=== PATIENT | female | born 1945 | race Caucasian/White ===

== ENCOUNTER 2017-12-29 10:24 | Emergency (ER) | payer OTHER ==
--- OUTSIDE RECORDS SUMMARY | 2017-12-29 10:57 | XMS REPORT ---
:1945 Author Organization eClinicalWorks Care Team Providers Name Role Phone Briana Jeffries Provider Role Unavailable Allergies, Adverse Reactions, Alerts Substance Reaction Event Type Sulfa Info Not Available Drug Allergy gluten Info Not Available Non Drug Allergy Problems Problem Type Condition Code Onset Dates Condition Status Problem Thyroid disease E07.9 Active Assessment Well woman exam with routine Z01.419 Active gynecological exam Problem Hormone replacement therapy (HRT) Z79.890 Active Assessment Hormone replacement therapy (HRT) Z79.890 Active Assessment Encounter for screening mammogram Z12.31 Active for malignant neoplasm of breast Assessment Thyroid disease E07.9 Active Medications Medication Code System Code Instructions Start Date End Date Status Dosage Estradiol [facility] [id number] 1 MG Orally Daily Active 1 tablet for Three Weeks, 1 Week off Results No Known Results Summary Purpose eClinicalWorks Submission
--- OUTSIDE RECORDS SUMMARY | 2017-12-29 10:57 | XMS REPORT | Clinical Summary ---
:1945 Author Organization [facility] Address [address] [place] [address] Care Team Providers Name Role Phone Gwendolyn Hicks MD Primary Care Provider Allergies Active Allergy Reactions Severity Noted Date Comments Sulfa (Sulfonamide Antibiotics) 06/30/2016 Rash on neck Medications Medication Sig Dispensed Refills Start Date End Date Status estradiol (ESTRACE) Take 1 mg by 0 Active 1 MG tablet mouth daily. cholecalciferol, Take 2,000 0 Active vitamin D3, Units by mouth (VITAMIN D3) 2,000 daily. unit capsule capsule ASCORBATE CALCIUM Take 1,000 mg 0 Active (VITAMIN C ORAL) by mouth daily. CALCIUM CIT/VIT Take by mouth 0 Active D3/ISOFLAVON 2 daily. (MENOPAUSE RELIEF ORAL) melatonin 1 mg Take 2 mg by 0 Active tablet mouth nightly. therapeutic Take 1 tablet 0 Active multivitamin by mouth (THERAGRAN) tablet daily. UNABLE TO FIND Med Name: pork 0 Active thyroid over the counter. 3 pills a day VIT B COMPLEX 100 Take by mouth. 0 01/04/2017 Discontinued COMBO NO.2 ORAL vit B comp Take 1 tablet 0 01/04/2017 Discontinued no.6-itvad-U-biotin by mouth (NEPHRO-ALYCE RX) daily. 1-60-300 mg-mg-mcg tablet DESOGESTREL-ETHINYL Take by mouth 0 01/04/2017 Discontinued ESTRADIOL (VELIVET daily. TRIPHASIC REGIMEN, 28, ORAL) MELATONIN/PYRIDOXIN Take by mouth. 0 01/04/2017 Discontinued E (MELATONIN, WITH B6, ORAL) FEXOFENADINE/PSEUDO Take by mouth 0 01/04/2017 Discontinued EPHEDRINE (ALLERGY as needed. RELIEF D ORAL) THYROID, PORK, ORAL Take by mouth. 0 01/04/2017 Discontinued Active Problems Problem Noted Date Hypothyroidism 01/04/2017 History of hypothyroidism 01/04/2017 Hyperlipidemia HTN (hypertension) Encounters Date Type Specialty Care Team Description 01/18/2017 Office Visit Internal Medicine AdrienneJatinder, Essential hypertension (Primary Dx); MD Gwendolyn Hyperlipidemia, unspecified hyperlipidemia type; History of psychosis 01/11/2017 Telephone Internal Medicine Fabiola, MD Gwendolyn 01/04/2017 Office Visit Internal Medicine AdrienneJatinder, Essential hypertension (Primary Dx); MD Gwendolyn Depression, unspecified depression type; Hyperlipidemia, unspecified hyperlipidemia type; History of hypothyroidism; Hyperglycemia 12/29/2016 Hospital Encounter Radiology Varsha Marino Screening breast MD Debora examination after 12/28/2016 Family History Medical History Relation Name Comments Heart attack Father s/p CABG, at 90 Prostate cancer Father Asthma Mother Colon cancer Mother in her 50s, at 76 due to mets Breast cancer Sister Diabetes Sister Lupus Sister Relation Name Status Comments Father Mother Sister Alive Social History Tobacco Use Types Packs/Day Years Used Date Never Smoker Smokeless Tobacco: Never Used Alcohol Use Drinks/Week oz/Week Comments Yes rarely Sex Assigned at Date Recorded Not on file Job Start Date Occupation Industry Not on file Not on file Not on file Travel History Travel Start Travel End No recent travel history available. Last Filed Vital Signs Vital Sign Reading Time Taken Blood Pressure 144/72 01/18/2017 11:37 AM ENERGY ADMINISTRATOR Pulse 65 01/18/2017 11:37 AM ENERGY ADMINISTRATOR Temperature 36.1 C (97 F) 01/18/2017 11:13 AM ENERGY ADMINISTRATOR Respiratory Rate - - Oxygen Saturation 97% 01/18/2017 11:13 AM ENERGY ADMINISTRATOR Inhaled Oxygen Concentration - - Weight 56.2 kg (124 lb) 01/18/2017 11:13 AM ENERGY ADMINISTRATOR Height 157.5 cm (5' 2") 01/18/2017 11:13 AM ENERGY ADMINISTRATOR Body Mass Index 22.68 01/18/2017 11:13 AM ENERGY ADMINISTRATOR Plan of Treatment Health Maintenance Due Date Last Done Comments SHINGRIX VACCINE (1 of 2) 01/10/1996 ZOSTER VACCINE 2006 PNEUMOCOCCAL POLYSACCHARIDE VACCINE 2011 AGE 65 AND OVER PNEUMOCOCCAL-13 2011 INFLUENZA VACCINE 09/15/2017 BREAST CANCER SCREENING 12/29/2018 12/29/2016, 12/26/2015, 11/21/2014, Additional history exists COLON CANCER SCREENING 01/16/2026 01/17/2016 Procedures Procedure Name Priority Date/Time Associated Diagnosis Comments URINALYSIS, AUTOMATED Routine 01/12/2017 9:41 Essential hypertension Results for this WITH MICROSCOPY AM ENERGY ADMINISTRATOR procedure are in the results section. HEMOGLOBIN A1C Routine 01/12/2017 9:41 Hyperglycemia Results for this AM ENERGY ADMINISTRATOR procedure are in the results section. LIPID PANEL Routine 01/12/2017 9:41 Hyperlipidemia, Results for this AM ENERGY ADMINISTRATOR unspecified procedure are in hyperlipidemia type the results section. COMPREHENSIVE Routine 01/12/2017 9:41 Essential hypertension Results for this METABOLIC PANEL AM ENERGY ADMINISTRATOR procedure are in the results section. CBC WITH PLATELET AND Routine 01/12/2017 9:41 Essential hypertension Results for this DIFFERENTIAL AM ENERGY ADMINISTRATOR procedure are in the results section. MAMMO BREAST SCREEN Routine 12/29/2016 11:05 Screening breast Results for this TOMOSYNTHESIS AM ENERGY ADMINISTRATOR examination procedure are in BILATERAL the results section. after 12/28/2016 Results Urinalysis, automated with microscopy (01/12/2017 9:41 AM ENERGY ADMINISTRATOR) Color, UA YELLOW [facility] [place] Appearance CLEAR [facility] [place] Specific gravity, urine 1.001 - 1.035 [facility] [place] pH, urine 5.0 - 8.0 [facility] [place] Glucose, urine NEGATIVE [facility] [place] Bilirubin, UA NEGATIVE [facility] [place] Ketones, UA NEGATIVE [facility] [place] Occult blood, urine NEGATIVE [facility] [place] Protein, UA NEGATIVE [facility] [place] Nitrite, UA NEGATIVE [facility] [place] Leukocyte esterase, UA NEGATIVE [facility] [place] WBC, UA < OR=5 /HPF [facility] [place] RBC, UA < OR=2 /HPF [facility] [place] Squamous epithelial cells, UA < OR=5 /HPF [facility] [place] Bacteria, UA NONE SEEN /HPF [facility] [place] Hyaline casts, UA NONE SEEN /LPF [facility] [place] Specimen Urine Narrative Performed At FASTING:YES [facility] FASTING: YES Resulting Agency Comment Performing Organization Information: Site ID: [id number] Name: [facility] Address: [address] [place] [phone] Director: Merary Ramirez MD Performing Organization Address City/State/Zipcode Phone Number [employer] [address] [phone] CBC with platelet and differential (01/12/2017 9:41 AM ENERGY ADMINISTRATOR) WBC (L) 3.8 - 10.8 Thousand/uL [facility] [place] RBC 3.80 - 5.10 Million/uL [facility] [place] HGB 11.7 - 15.5 g/dL [facility] [place] HCT 35.0 - 45.0 % [facility] [place] MCV 80.0 - 100.0 fL [facility] [place] MCH 27.0 - 33.0 pg [facility] [place] MCHC 32.0 - 36.0 g/dL [facility] [place] RDW 11.0 - 15.0 % [facility] [place] Platelet count 140 - 400 Thousand/uL [facility] [place] MPV 7.5 - 12.5 fL [facility] [place] Neutrophils, absolute 1,500 - 7,800 cells/uL [facility] [place] Lymphocytes, absolute 850 - 3,900 cells/uL [facility] [place] Monocytes, absolute 200 - 950 cells/uL [facility] [place] Eosinophils, absolute 15 - 500 cells/uL [facility] [place] Basophils, absolute 0 - 200 cells/uL [facility] [place] Neutrophils % [facility] [place] Lymphocytes % [facility] [place] Monocytes % [facility] [place] Eosinophils % [facility] [place] Basophils + RC % [facility] [place] Specimen Blood Narrative Performed At FASTING:YES [facility] FASTING: YES Resulting Agency Comment Performing Organization Information: Site ID: [id number] Name: [facility] Address: [address] [place] [phone] Director: Merary Ramirez MD Performing Organization Address City/State/Zipcode Phone Number [employer] [facility] [place] [phone] Hemoglobin A1c (01/12/2017 9:41 AM ENERGY ADMINISTRATOR) Hemoglobin A1C <5.7 % of total Hgb [facility] [place] Comment: For the purpose of screening for the presence of diabetes: <5.7% Consistent with the absence of diabetes 5.7-6.4%Consistent with increased risk for diabetes (prediabetes) > or=6.5%Consistent with diabetes This assay result is consistent with a decreased risk of diabetes. Currently, no consensus exists regarding use of hemoglobin A1c for diagnosis of diabetes in children. According to [place] Diabetes Association (ADA) guidelines, hemoglobin A1c <7.0% represents optimal control in non- diabetic patients. Different metrics may apply to specific patient populations. Standards of Medical Care in Diabetes(ADA). Specimen Blood Narrative Performed At FASTING:YES [facility] FASTING: YES Resulting Agency Comment Performing Organization Information: Site ID: [id number] Name: [facility] Address: [address] [place] [id number] Director: Merary Ramirez MD Performing Organization Address [facility] Phone Number [employer] [facility] [place] [phone] Lipid panel (01/12/2017 9:41 AM ENERGY ADMINISTRATOR) Cholesterol, total (H) <200 mg/dL [facility] [place] HDL cholesterol >50 mg/dL [facility] Comment: [place] Verified by repeat analysis. Triglycerides <150 mg/dL [facility] [place] LDL cholesterol (H) mg/dL (calc) [facility] calculated Comment: [place] Reference range: <100 Desirable range <100 mg/dL for patients with CHD or diabetes and <70 mg/dL for diabetic patients with known heart disease. LDL-C is now calculated using the Jeannie calculation, which is a validated novel method providing better accuracy than the Friedewald equation in the estimation of LDL-C. Lb SHERMAN et al. DIONNA. 2013;310(19): 1884-5578 (http://education.Carma/faq/WLI327) Cholesterol/HDL ratio <5.0 (calc) [facility] Non-HDL cholesterol <130 mg/dL [facility] Comment: (calc) [place] For patients with diabetes plus 1 major ASCVD risk factor, treating to a non-HDL-C goal of <100 mg/dL (LDL-C of <70 mg/dL) is considered a therapeutic option. Specimen Blood Narrative Performed At FASTING:YES [facility] FASTING: YES Resulting Agency Comment Performing Organization Information: Site ID: [id number] Name: [facility] Address: [address] [place] [phone] Director: Merary Ramirez MD Performing Organization Address [facility]/Zipcode Phone Number [employer] [address] [phone] Comprehensive metabolic panel (01/12/2017 9:41 AM ENERGY ADMINISTRATOR) Glucose 65 - 99 mg/dL [facility] Comment: [place] Fasting reference interval BUN, whole blood 7 - 25 mg/dL [facility] [place] Creatinine 0.60 - 0.93 [facility] Comment: mg/dL [place] For patients >49 years of age, the reference limit for Creatinine is approximately 13% higher for people identified as -[place]. EGFR Non-Afr. [place] > OR=60 [facility] mL/min/1.73m2 [place] EGFR > OR=60 [facility] mL/min/1.73m2 [place] BUN/creatinine ratio 6 - 22 (calc) [facility] [place] Sodium 135 - 146 mmol/L [facility] [place] Potassium 3.5 - 5.3 mmol/L [facility] [place] Chloride 98 - 110 mmol/L [facility] [place] CO2 20 - 31 mmol/L [facility] [place] Calcium 8.6 - 10.4 mg/dL [facility] [place] Protein 6.1 - 8.1 g/dL [facility] [place] Albumin, S 3.6 - 5.1 g/dL [facility] [place] Globulin, total 1.9 - 3.7 g/dL [facility] (calc) [place] Albumin/globulin ratio 1.0 - 2.5 (calc) [facility] [place] Total bilirubin 0.2 - 1.2 mg/dL [facility] [place] Alkaline phosphatase 33 - 130 U/L [facility] AST 10 - 35 U/L [facility] ALT 6 - 29 U/L [facility] [place] Specimen Blood Narrative Performed At FASTING:YES [facility] FASTING: YES Resulting Agency Comment Performing Organization Information: Site ID: [id number] Name: [facility] Address: [address] [place] [phone] Director: Merary Ramirez MD Performing Organization Address City/State/Zipcode Phone Number [facility] [place] [phone] Mammo Breast Screen Tomosynthesis Bilateral (12/29/2016 11:05 AM ENERGY ADMINISTRATOR) Narrative Performed At PROCEDURE: MAMMO BREAST SCREEN TOMOSYNTHESIS BILATERAL [facility] Computer aided detection was utilized for the interpretation of the digital bilateral screening mammography with tomosynthesis. COMPARISON: 12/26/2015-10/19/2007 CLINICAL HISTORY: Screening mammogram.The patient has no current breast complaints. The patient reports a family history of her sister diagnosed breast cancer at age 57. The patient reports a history of prior benign right breast surgical biopsy in 1997. DENSITY: There are scattered areas of fibroglandular density. There is a stable asymmetry in the right outer breast at anterior depth dating back to 2007 mammogram, which is presumed benign. There are vascular calcifications present in both breasts. No significant masses, calcifications, or other findings are seen in either breast. There has been no significant interval change. IMPRESSION:No mammographic evidence of malignancy. RECOMMENDATION: Comparison with physical exam and annual screening mammography. BI-RADS 2: BENIGN This facility is accredited by the [place] [employer] for Mammography. A negative x-ray report should not delay biopsy if a dominant or clinically suspicious mass is present.Not all cancers are identified by x-ray. [id number] Organization Address City/State/Zipcode Phone Number [facility] [address] [place] [address] after 12/28/2016 Insurance Payer Benefit Plan / Group Subscriber ID Type Phone Address [facility] xxxxxxxxxxx Advance Directives Patient has advance care planning documents on file. For more information, please contact:Daniel Stallings[address] [place] [address]
--- NOTE | 2017-12-29 11:35 | EKG ---
Test Date: 2017-12-29 Test Time: 10:41:22 [employer] Specialist: MELISSA MEASUREMENT RESULTS: Intervals: Rate: 67 ME: 184 QRSD: 82 QT: 412 QTc: 435 [place]: P: 80 ME: 184 QRS: 78 T: 87 INTERPRETIVE STATEMENTS: Normal sinus rhythm Normal ECG No previous ECG available for comparison Electronically Signed On 12-29-17 11:34:42 TERMITE CONTROL REPRESENTATIVE by Praveen Blood
[2017-12-29 11:57] LABS: Protime INR 0.97
[2017-12-29 11:58] LABS: Absolute Lymphocytes (CBC) 0.9 K/uL (0.7-4.9); Absolute Monocytes 0.2 K/uL (0.1-1.3); Absolute Neutrophil 2.6 K/uL (1.8-8.0); Basophils % 0.6 % (0-1.3); Eosinophils % 1.8 % (0-4.4); Lymphocytes % 23.8 % (15.3-44.8); MCH 33.6 pg (27.0-35.0); MPV 7.4 fL (7.6-11.3); Monocytes % 6.4 % (3.3-12.3); RBC Red Blood Cell Count 4.19 M/uL (3.86-4.86)
[2017-12-29 12:28] LABS: ALT/SGPT 30 U/L (12-78); AST/SGOT 21 U/L (15-37); Albumin 3.7 g/dL (3.4-5.0); Alkaline Phosphatase 72 U/L (45-117); BUN Blood Urea Nitrogen 28 mg/dL (7-18); Bicarbonate 30 mmol/L (21-32); Bilirubin Direct < 0.1 mg/dL (0-0.2); Bilirubin Total 0.3 mg/dL (0.2-1.0); Glucose Level 100 mg/dL (74-106); Magnesium 2.5 mg/dL (1.8-2.4); NT PRO-BNP 48 pg/mL (<125); Protein, Total 7.2 g/dL (6.4-8.2); Sodium Level 143 mmol/L (136-145); Troponin (Emerg Dept Use Only) < 0.02 ng/mL (0.0-0.045)
[2017-12-29] MEDS ORDERED: NA CHLORIDE 0.9% 1,000 ML ONE (12:59)
--- NOTE | 2017-12-29 13:24 | RAD REPORT ---
EXAM DESCRIPTION: CT - Abdomen Pelvis W Contrast - 12/29/2017 1:10 pm CLINICAL HISTORY: Abdominal pain with hematochezia COMPARISON: none. TECHNIQUE: Computed axial tomography of the abdomen pelvis was obtained. 100 cc Isovue-300 was admin istered intravenously. Oral contrast was not requested which limits evaluation of bowel. All CT scans are performed using dose optimization technique as appropriate and may include automated exposure control or mA/KV adjustment according to patient size. FINDINGS: The liver, spleen, pancreas, adrenal and kidneys appear unremarkable. There is no evidence of diverticulitis. The appendix is normal. A small gallstone is seen. Tiny umbilical hernia IMPRESSION: Cholelithiasis without evidence of cholecystitis.
--- NOTE | 2017-12-29 14:26 | EDPHYS ---
Physician Documentation [facility] Name: Padmaja Chen Age: 72 yrs Sex: Female : 1945 Arrival Date: 12/29/2017 Time: 10:30 Bed 19 Private MD: ED Physician William Messer HPI: 12/29 12:04 This 72 yrs old Female presents to ER via EMS with complaints of Near Syncope.kb 12:04 The patient presents with generalized weakness. Onset: The symptoms/episode kb began/occurred just prior to arrival. Context: occurred at an office, occurred while the patient was walking. Modifying factors: The symptoms are alleviated by nothing, the symptoms are aggravated by nothing. Associated signs and symptoms: Pertinent positives: abdominal pain, diarrhea, blood with bowel movements. Severity of symptoms: At their worst the symptoms were moderate in the emergency department the symptoms are unchanged. Patient's baseline: Neuro: alert and fully oriented, Motor: no deficits, Ambulation: walks without assistance, Speech: normal. The patient has not experienced similar symptoms in the past. The patient has not recently seen a physician. Pt reports she had some blood on the toilet paper after bowel movements for a week. Has had diarrhea for the past 2 days without bleeding. Today was walking to the restroom at the doctor's office and got very weak.. Historical: - Allergies: 10:46 Gluten Protein; ch 10:46 Sulfa (Sulfonamide Antibiotics); ch 10:58 Sulfa (Sulfonamide Antibiotics); jl7 - Home Meds: 10:46 urothyroid [Active]; ch 10:58 Estrol [Active]; progesterone (bulk) 100 % miscellaneous powd [Active]; testosterone jl7 (bulk) miscellaneous [Active]; ultra thyroid [Active]; - PMHx: 10:46 Hypothyroidism; gluten intolerance; vagal syndrome; ch - PSHx: 10:46 bladder sling; rectosecal repair; ch - Immunization history:: Adult Immunizations up to date, Flu vaccine is not up to date. - Social history:: Smoking status: Patient/guardian denies using tobacco, Patient/guardian denies using alcohol, street drugs. - Ebola Screening: : Patient negative for fever greater than or equal to 101.5 degrees Fahrenheit, and additional compatible Ebola Virus Disease symptoms Patient denies exposure to infectious person Patient denies travel to an Ebola-affected area in the 21 days before illness onset No symptoms or risks identified at this time. ROS: 12:03 Constitutional: Negative for fever, chills, and weight loss, Cardiovascular: Negative kb for chest pain, palpitations, and edema, Respiratory: Negative for shortness of breath, cough, wheezing, and pleuritic chest pain, Back: Negative for injury and pain, : Negative for injury, bleeding, discharge, and swelling, MS/Extremity: Negative for injury and deformity, Skin: Negative for injury, rash, and discoloration. 12:03 Abdomen/GI: Positive for abdominal pain, diarrhea, rectal bleeding. 12:03 Neuro: Positive for weakness. Exam: 12:02 Constitutional: This is a well developed, well nourished patient who is awake, alert, kb and in no acute distress. Head/Face: Normocephalic, atraumatic. Chest/axilla: Normal chest wall appearance and motion. Nontender with no deformity. No lesions are appreciated. Cardiovascular: Regular rate and rhythm with a normal S1 and S2. No gallops, murmurs, or rubs. Normal PMI, no JVD. No pulse deficits. Respiratory: Lungs have equal breath sounds bilaterally, clear to auscultation and percussion. No rales, rhonchi or wheezes noted. No increased work of breathing, no retractions or nasal flaring. Skin: Warm, dry with normal turgor. Normal color with no rashes, no lesions, and no evidence of cellulitis. MS/ Extremity: Pulses equal, no cyanosis. Neurovascular intact. Full, normal range of motion. Neuro: Awake and alert, GCS 15, oriented to person, place, time, and situation. Cranial nerves II-XII grossly intact. Motor strength 5/5 in all extremities. Sensory grossly intact. Cerebellar exam normal. Normal gait. 12:02 Abdomen/GI: Inspection: abdomen appears normal, Bowel sounds: normal, in all quadrants, Palpation: soft, in all quadrants, moderate abdominal tenderness, in all quadrants. 12:46 Abdomen/GI: Rectal exam: rectal tone normal, Stool: guaiac negative, hemorrhoid(s), kb external, without bleeding, without inflammation, without thrombosis, without pain, the exam is chaperoned by the nurse. Vital Signs: 10:46 BP 153 / 57; Pulse 63; Resp 13; Temp 97.9; Pulse Ox 99% on R/A; Weight 47.63 kg; Height ch 5 ft. 3 in. (160.02 cm); Pain 6/10; 11:00 BP 140 / 61; Pulse 58; Resp 16 S; Pulse Ox 98% on R/A; jl7 11:51 BP 158 / 62 Supine; Pulse 53; Resp 14 S; Pulse Ox 99% on R/A; jl7 11:53 BP 153 / 70 Sitting; Pulse 70; jl7 11:55 BP 153 / 63 Standing; Pulse 69; jl7 12:09 BP 152 / 64; Pulse 62; Resp 16 S; Pulse Ox 100% on R/A; jl7 10:46 Body Mass Index 18.60 (47.63 kg, 160.02 cm) ch MDM: 10:44 Patient medically screened. kb 12:02 Data reviewed: vital signs, nurses notes. Data interpreted: Pulse oximetry: on room air kb is 99 %. Interpretation: normal. 13:34 Counseling: I had a detailed discussion with the patient and/or guardian regarding: the kb historical points, exam findings, and any diagnostic results supporting the discharge/admit diagnosis, lab results, radiology results, the need for outpatient follow up, a family practitioner, to return to the emergency department if symptoms worsen or persist or if there are any questions or concerns that arise at home. 13:34 ED course: Pt is feeling better and wants to go home. A\\T\\Ox3. at bedside, states kb "She worries too much about her diet. She follows a strict diet and checks her sugar every day. If it's 90 she thinks that is too high so she doesn't eat." Pt states "well tomorrow if it's back to the 70s I can eat that bread I've been saving, but today it was 80 so I couldn't." Pt educated on blood glucose levels, normal values and hypoglycemia. . 12/29 10:56 Order name: Basic Metabolic Panel; Complete Time: 12:32 kb 12/29 10:56 Order name: CBC with Diff; Complete Time: 12:01 kb 12/29 10:56 Order name: LFT's; Complete Time: 12:32 kb 12/29 10:56 Order name: Magnesium; Complete Time: 12:32 kb 12/29 10:56 Order name: NT PRO-BNP; Complete Time: 12:32 kb 12/29 10:56 Order name: PT-INR; Complete Time: 12:08 kb 12/29 10:56 Order name: Troponin (emerg Dept Use Only); Complete Time: 12:32 kb 12/29 12:37 Order name: CT Abd/Pelvis - W/Contrast; Complete Time: 13:26 kb 12/29 12:47 Order name: Guiac kb 12/29 12:47 Order name: Occult Blood--Ancillary EDMS 12/29 13:35 Order name: Urine Dipstick--Ancillary (enter results) bd 12/29 10:56 Order name: EKG; Complete Time: 10:57 kb 12/29 10:56 Order name: Cardiac monitoring; Complete Time: 11:49 kb 12/29 10:56 Order name: EKG - Nurse/Tech; Complete Time: 11:49 kb 12/29 10:56 Order name: IV Saline Lock; Complete Time: 11:49 kb 12/29 10:56 Order name: Labs collected and sent; Complete Time: 11:49 kb 12/29 10:56 Order name: O2 Per Protocol; Complete Time: 11:49 kb 12/29 10:56 Order name: O2 Sat Monitoring; Complete Time: 11:48 kb 12/29 10:56 Order name: Orthostatics; Complete Time: 12:06 kb Administered Medications: 13:15 Drug: NS 0.9% 1000 ml Route: IV; Rate: 1000 ml; Site: right forearm; jl7 14:00 Follow up: IV Status: Completed infusion jl7 Disposition: 18:58 Co-signature as Attending Physician, William Messer MD I agree with the assessment and kdr plan of care. Disposition: 12/29/17 13:56 Discharged to Home. Impression: Weakness, Diarrhea, unspecified. - Condition is Stable. - Discharge Instructions: Food Choices to Help Relieve Diarrhea, Adult, Diarrhea, Adult, Gibs-bw-Jpey, Weakness, Buri-fs-Lina. - Medication Reconciliation Form, Thank You Letter, Antibiotic Education, Prescription Opioid Use form. - Follow up: Emergency Department; When: As needed; Reason: Worsening of condition. Follow up: Private Physician; When: 2 - 3 days; Reason: Recheck today's complaints, Continuance of care, Re-evaluation by your physician. Signatures: Dispatcher [employer] EDMS Tiesha Isidro, TRELL-C WELT CUTTER-Sindy Ashford, RN RN William Messer MD MD [facility] Mikal Clemente RN RN jl7 Corrections: (The following items were deleted from the chart) 14:12 13:56 12/29/2017 13:56 Discharged to Home. Impression: Weakness; Diarrhea, unspecified. jl7 Condition is Stable. Discharge Instructions: Food Choices to Help Relieve Diarrhea, Adult, Diarrhea, Adult, [id number], Weakness, Cyrr-yi-Erhn. Forms are Medication Reconciliation Form, Thank You Letter, Antibiotic Education, Prescription Opioid Use. Follow up: Emergency Department; When: As needed; Reason: Worsening of condition. Follow up: Private Physician; When: 2 - 3 days; Reason: Recheck today's complaints, Continuance of care, Re-evaluation by your physician. kb
--- NOTE | 2017-12-29 14:26 | ER ---
Nurse's Notes [facility] Name: Padmaja Chen Age: 72 yrs Sex: Female : 1945 Arrival Date: 12/29/2017 Time: 10:30 Bed 19 Private MD: Diagnosis: Weakness;Diarrhea, unspecified Presentation: 12/29 10:36 Presenting complaint: Patient states: I have been pooping blood, I get stomach issues, ch for the past week or so. Today I felt like I was going to pass out. 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 I cant eat gluten, it all goes right thru me. Transition of care: patient was not received from another setting of care. Onset of symptoms was December 29, 2017 at 08:00. Risk Assessment: Do you want to hurt yourself or someone else? Patient reports no desire to harm self or others. Initial Sepsis Screen: Does the patient meet any 2 criteria? No. Patient's initial sepsis screen is negative. Does the patient have a suspected source of infection? No. Patient's initial sepsis screen is negative. Care prior to arrival: None. 10:36 Method Of Arrival: EMS: [facility] 10:36 Acuity: KATRIN 3 ch Triage Assessment: 10:46 General: Appears in no apparent distress. uncomfortable, Behavior is calm, cooperative, ch appropriate for age. Pain: Complains of pain in low back area, right lower quadrant and left lower quadrant. Historical: - Allergies: 10:46 Gluten Protein; ch 10:46 Sulfa (Sulfonamide Antibiotics); ch 10:58 Sulfa (Sulfonamide Antibiotics); jl7 - Home Meds: 10:46 urothyroid [Active]; ch 10:58 Estrol [Active]; progesterone (bulk) 100 % miscellaneous powd [Active]; testosterone jl7 (bulk) miscellaneous [Active]; ultra thyroid [Active]; - PMHx: 10:46 Hypothyroidism; gluten intolerance; vagal syndrome; ch - PSHx: 10:46 bladder sling; rectosecal repair; ch - Immunization history:: Adult Immunizations up to date, Flu vaccine is not up to date. - Social history:: Smoking status: Patient/guardian denies using tobacco, Patient/guardian denies using alcohol, street drugs. - Ebola Screening: : Patient negative for fever greater than or equal to 101.5 degrees Fahrenheit, and additional compatible Ebola Virus Disease symptoms Patient denies exposure to infectious person Patient denies travel to an Ebola-affected area in the 21 days before illness onset No symptoms or risks identified at this time. Screenin:09 Abuse screen: Denies threats or abuse. Denies injuries from another. Nutritional jl7 screening: No deficits noted. Tuberculosis screening: No symptoms or risk factors identified. Fall Risk IV access (20 points). Total Elliott Fall Scale indicates No Risk (0-24 pts). Assessment: 11:00 General: See triage assessment. jl7 12:07 Reassessment: Patient appears in no apparent distress at this time. No changes from 7 previously documented assessment. Patient and/or family updated on plan of care and expected duration. Pain level reassessed. Patient is alert, oriented x 3, equal unlabored respirations, skin warm/dry/pink. 13:36 Reassessment: Patient appears in no apparent distress at this time. No changes from 7 previously documented assessment. Patient and/or family updated on plan of care and expected duration. Pain level reassessed. Patient is alert, oriented x 3, equal unlabored respirations, skin warm/dry/pink. Vital Signs: 10:46 BP 153 / 57; Pulse 63; Resp 13; Temp 97.9; Pulse Ox 99% on R/A; Weight 47.63 kg; Height 5 ft. 3 in. (160.02 cm); Pain 6/10; 11:00 BP 140 / 61; Pulse 58; Resp 16 S; Pulse Ox 98% on R/A; jl7 11:51 BP 158 / 62 Supine; Pulse 53; Resp 14 S; Pulse Ox 99% on R/A; jl7 11:53 BP 153 / 70 Sitting; Pulse 70; jl7 11:55 BP 153 / 63 Standing; Pulse 69; jl7 12:09 BP 152 / 64; Pulse 62; Resp 16 S; Pulse Ox 100% on R/A; jl7 10:46 Body Mass Index 18.60 (47.63 kg, 160.02 cm) ED Course: 10:30 Patient arrived in ED. 10:33 Mikal Clemente RN is Primary Nurse. 7 10:38 Triage completed. 10:44 Tiesha Isidro FNP-C is PHCP. kb 10:44 William Messer MD is Attending Physician. kb 10:46 Arm band placed on left wrist. Patient placed in an exam room, on a stretcher, on teletypesetter monitor, on pulse oximetry. 10:51 EKG done, by gis mapping technician. reviewed by Tiesha BUSBY. at1 11:00 Maintain EMS IV. Dressing intact. Good blood return noted. Site clean \T\ dry. Gauge \T\ jl 7 site: 18 right FA. 12:09 Patient has correct armband on for positive identification. Placed in gown. Bed in low jl7 position. Call light in reach. Side rails up X 1. teletypesetter monitor on. Pulse ox on. NIBP on. Warm blanket given. 13:11 CT Abd/Pelvis - W/Contrast In Process Unspecified. EDMS 14:11 No provider procedures requiring assistance completed. IV discontinued, intact, jl7 bleeding controlled, No redness/swelling at site. Pressure dressing applied. Administered Medications: 13:15 Drug: NS 0.9% 1000 ml Route: IV; Rate: 1000 ml; Site: right forearm; jl7 14:00 Follow up: IV Status: Completed infusion jl7 Outcome: 13:56 Discharge ordered by MD. kb 14:11 Discharged to home ambulatory, with family. jl7 14:11 Condition: stable 14:11 Discharge instructions given to patient, family, Instructed on discharge instructions, follow up and referral plans. Demonstrated understanding of instructions, follow-up care. 14:12 Patient left the ED. jl7 Signatures: Dispatcher [employer] EDMS Tiesha Isidro FNP-C FNP-Ckb Hammond, Christina, RN RN Mariela Hatch, ophthalmology assistant EKG Tat1 Mikal Clemente RN RN jl7
[2017-12-29 16:09] LABS: Urine Blood NEGATIVE (NEG); Urine Glucose NEGATIVE (NEG); Urine Protein NEGATIVE (NEG)
== END 2017-12-29 14:12 | disposition home or self-care (01) ==
LOC: ER 10:24
DX: R19.7 Diarrhea, unspecified (principal); E03.9 Hypothyroidism, unspecified; Z88.2 Allergy status to sulfonamides; Z91.048 Other nonmedicinal substance allergy status
CPT/HCPCS: 36415; 74177; 80048; 80076; 81003; 82272; 83735; 83880; 84484; 85025; 85610; 93005; 96360; 99284; J7030; Q9967

== ENCOUNTER 2021-10-23 13:10 | Emergency (ER) | payer OTHER ==
--- OUTSIDE RECORDS SUMMARY | 2021-10-23 13:15 | XMS REPORT | Continuity of Care Document ---
:1945 Author Organization [facility] t Address [address] [place] [address] Care Team Providers Name Role Phone Andrzej VU, Ras A Primary Care Physician [phone] Anam VU, Surjit Attending Clinician Brigida Calix Attending Clinician Dwaine VU, Naima Attending Clinician BRYCE, SHUKRI Attending Clinician Unavailable Payers Payer Name Policy Type Policy Number Effective Date Expiration Date S ource Problems Condition Condition Condition Status Onset Resolution Last Treating Co mments Source Name Details Category Date Date Treatment Clinician Date Prolapse Prolapse Disease Active Unive rs of of 1-14 ity of anterior anterior 00:00: [place] vaginal vaginal 00 Medical wall wall Branch Fatigue Fatigue Disease Active 2017-02 Univers 2-30 ity of 00:00: [address] Hypothyroi Hypothyroi Disease Active 2016- M ethodi dism dism -20 st 00:00: Hospita 00 l History of History of Disease Active 2016- M ethodi hypothyroi hypothyroi 03-06 st dism dism 00:00: Hospita 00 l Acquired Acquired Disease Active 2016-02 Unive rs hypothyroi hypothyroi -20 it y of dism dism 00:00: [address] Hyperlipid Hyperlipid Disease Active M ethodi em[facility] Hospita l HTN HTN Disease Active Methodi (hypertens (hypertens st ion) ion) Hospita l Thyroid Thyroid Diagnosis Active Commo n disease disease Spirit - [facility] Well woman Well woman Diagnosis Active Common exam with exam with Spir it routine routine - [facility] gynecologi gynecologi St brayden exam brayden exam [facility] Hormone Hormone Diagnosis Active Commo n replacemen replacemen Sp kiara t therapy t therapy - [facility] I (HRT) (HRT) [facility] Encounter Encounter Diagnosis Active C ommon for [facility] screening screening - [facility] I mammogram mammogram [facility] malignant malignant [facility] neoplasm neoplasm Center of breast of breast Allergies, Adverse Reactions, Alerts Allergy Allergy Status Severity Reaction(s) Onset Inactive Treating Comm ents Source Name Type Date Date Clinician Latex Propensi Active Rash 2017-02 Univers ty to 2-20 ity of adverse 00:00: [place] reaction 00 Medical s Branch Sulfa Propensi Active Rash on Methodi (Sulfona ty to 5-[address] mide adverse 00:00: Hospita Antibiot reaction 00 l ics) s to drug Sulfa Propensi Active Unknown - Unive rs (Sulfona ty to See comments 4-29 it y of mide adverse 00:00: [place] Antibiot reaction 00 Medica l ics) s Branch gluten Adverse Active Info Not Common Reaction Available [facility] Sulfa Adverse Active Info Not Common Reaction Available [facility] Family History Family Member Diagnosis Comments Start Date Stop Date Source Natural sister Breast cancer [facility] Natural sister Diabetes [facility] Natural sister Lupus [facility] Natural father Heart [facility] Natural father Prostate cancer [facility] Natural mother Asthma [facility] Natural mother Colon cancer [facility] Social History Social Habit Start Date Stop Date Quantity Comments Source Exposure to Not sure University of SARS-CoV-2 [facility] (event) Branch Tobacco use and 2018-01-24 2018-01-24 Never used Universit y of exposure 00:00:00 00:00:00 [facility] Alcohol intake 2017-01-18 2017-01-18 Current drinker [facility] 00:00:00 00:00:00 of alcohol (finding) Alcohol Comment 2017-01-04 2017-01-04 rarely [facility] 00:00:00 00:00:00 Sex [birth year] [facility] 00:00:00 00:00:00 Smoking Status Start Date Stop Date Source Never smoker [facility] Medical Branch Medications Ordered Filled Start Stop Current Ordering Indication Dosage Frequency Signature Comments Components Source Medication Medication Date Date Medication? Clinician (SIG) Name Name phenazopyri Yes [id number] 100mg Take 1 Univers dine 2-21 tablet by ity of (PYRIDIUM) [place]:00[place] 00 (two) Medical tablet times Branch daily as needed for Other (bladder spasms) for up to 30 doses. phenazopyri Yes [id number] 100mg Take 1 Univers dine 2-21 tablet by ity of (PYRIDIUM) 00:00: [place] 100 mg 00 (two) Medical tablet times Branch daily as needed for Other (bladder spasms) for up to 30 doses. phenazopyri Yes [id number] 100mg Take 1 Univers dine 2-21 tablet by ity of (PYRIDIUM) 00:00: [place] 100 mg 00 (two) Medical tablet times Branch daily as needed for Other (bladder spasms) for up to 30 doses. estradioL Yes [id number] Apply 1g Univers (ESTRACE) 1-24 vaginally ity o f 0.01 % (0.1 00:00: at bedtime [place] mg/gram) 00 every Medical vaginal night for Branch cream 2 weeks and then apply 1g vaginally at bedtime 3 times per week (/ ida) estradioL Yes [id number] Apply 1g Univers (ESTRACE) 1-24 vaginally ity o f 0.01 % (0.1 00:00: at bedtime [place] mg/gram) 00 every Medical vaginal night for Branch cream 2 weeks and then apply 1g vaginally at bedtime 3 times per week ( dn/ ida) estradioL Yes [id number] Apply 1g Univers (ESTRACE) 1-24 vaginally ity o f 0.01 % (0.1 00:00: at bedtime [place] mg/gram) 00 every Medical vaginal night for Branch cream 2 weeks and then apply 1g vaginally at bedtime 3 times per week (Wednesday//) estradioL 1 Yes 1mg Take 1 mg U nivers mg tablet -12 by mouth. ity o f 10:17: [place] [facility] Branch elderberry Yes Take by Univ ers fruit 1-12 mouth. ity of (ELDERBERRY 10:17: [place] ORAL) 05 Medical Branch COLLAGEN Yes Univers MISC 1-12 ity of 10:17: [place] [facility] Branch L-TRYPTOPHA Yes Univer s N MISC 12 ity of 10:17: [facility] estradioL 1 Yes 1mg Take 1 mg U nivers mg tablet -12 by mouth. ity o f 10:17: [facility] elderberry Yes Take by Univ ers fruit 1-12 mouth. ity of (ELDERBERRY 10:17: [place] ORAL) [facility] COLLAGEN Yes Univers MISC -12 ity of 10:17: [place] [facility] Branch L-TRYPTOPHA Yes Univer s N MISC 12 ity of 10:17: [facility] estradioL 1 Yes 1mg Take 1 mg U nivers mg tablet -12 by mouth. ity o f 10:17: [place] [facility] elderberry Yes Take by Univ ers fruit 1-12 mouth. ity of (ELDERBERRY 10:17: [place] ORAL) [facility] COLLAGEN Yes Univers MISC 1-12 ity of 10:17: [place] [facility] Branch L-TRYPTOPHA Yes Univer s N MISC -12 ity of 10:17: [facility] testosteron Yes Apply to Un raghav e 1.25 1-12 area(s) ity of g/Actuation 10:12: daily. 0.2 [place] (1 %) gel 29 % (1.25 gm Medi brayden pump dose on Branch back on wrist nightly testosteron Yes Apply to Un raghav e 1.25 1-12 area(s) ity of g/Actuation 10:12: daily. 0.2 [place] (1 %) gel 29 % (1.25 gm Medi brayden pump dose on Branch back on wrist nightly testosteron Yes Apply to Un raghav e 1.25 1-12 area(s) ity of g/Actuation 10:12: daily. 0.2 [place] (1 %) gel 29 % (1.25 gm Medi brayden pump dose on Branch back on wrist nightly plant Yes Take by Univers stanol 1-12 mouth ity of luis enrique 13:34: daily. [place] (CHOLEST 57 Medical OFF ORAL) Branch KELP ORAL Yes 1{tbl} Take 1 Univ ers 1-12 tablet by ity of 13:34: mouth [place] 57 daily. Medical Branch plant Yes Take by Univers stanol 1-12 mouth ity of luis enrique 13:34: daily. [place] (CHOLEST 57 Medical OFF ORAL) Branch KELP ORAL Yes 1{tbl} Take 1 Univ ers 1-12 tablet by ity of 13:34: mouth [place] 57 daily. Medical Branch plant Yes Take by Univers stanol 1-12 mouth ity of luis enrique 13:34: daily. [place] (CHOLEST 57 Medical OFF ORAL) Branch KELP ORAL Yes 1{tbl} Take 1 Univ ers 1-12 tablet by ity of 13:34: mouth [place] 57 daily. [facility] Branch multivitami 2019-0 Yes Take by Uni vers n with 1-14 mouth ity of minerals 13:48: daily. [place] (MULTIPLE 42 Medical VITAMIN-MIN Branch ERALS ORAL) calcium 2020-0 Yes Take by Univers carbonate/v 1-14 mouth. ity of itamin D2 13:48: [place] (CALCIUM 42 Medical 600 + D Branch ORAL) Misc 2020-0 Yes Univers Hormones 1-14 ity of 13:48: [address] Branch multivitami 2020-0 Yes Take by Uni vers n with 1-14 mouth ity of minerals 13:48: daily. [place] (MULTIPLE 42 Medical VITAMIN-MIN Branch ERALS ORAL) calcium 2020-0 Yes Take by Univers carbonate/v 1-14 mouth. ity of itamin D2 13:48: [place] (CALCIUM 42 Medical 600 + D Branch ORAL) Misc 2020-0 Yes Univers Hormones 1-14 ity of 13:48: [place] 42 Medical Branch multivitami 2020-0 Yes Take by Uni vers n with 1-14 mouth ity of minerals 13:48: daily. [place] (MULTIPLE 42 Medical VITAMIN-MIN Branch ERALS ORAL) calcium Yes Take by Univers carbonate/v 1-14 mouth. ity of itamin D2 13:48: [place] (CALCIUM 42 Medical 600 + D Branch ORAL) Misc Yes Univers Hormones 1-14 ity of 13:48: [place] 42 Medical Branch NATURE-THRO 2017-02 Yes Univer s ID 65 mg 0-29 ity of Tab 00:00: [place] 00 Medical Branch NATURE-THRO 2017-02 Yes Univer s ID 65 mg 0-29 ity of Tab 00:00: [place] 00 Medical Branch NATURE-THRO 2017-02 Yes Univer s ID 65 mg 0-29 ity of Tab 00:00: [place] 00 Medical Branch estradiol 2016-02 Yes 1mg QD Take 1 mg Met hodi (ESTRACE) 1 2-[address] MG tablet 11:14: daily. Hospit a 21 l cholecalcif 2016-02 Yes 2000U QD Take 2,000 Methodi naveen, 2-[address] vitamin D3, 11:14: mouth Hospi ta (VITAMIN 21 daily. l D3) 2,000 unit capsule capsule ASCORBATE 2016-02 Yes 1000mg QD Take 1,000 Methodi CALCIUM 2-[address] (VITAMIN C 11:14: mouth Hospit a ORAL) 21 daily. l CALCIUM 2016-02 Yes QD Take by Methodi CIT/VIT 2-[address] D3/ISOFLAVO 11:14: daily. Hosp lucila N 2 21 l (MENOPAUSE RELIEF ORAL) melatonin 1 2016-02 Yes 2mg QD Take 2 mg M ethodi mg tablet 2-[address] 11:14: nightly. Hospita 21 l therapeutic 2016-02 Yes 1{tbl} QD Take 1 Me thodi multivitami 2-[address] n 11:14: mouth Hospita (THERAGRAN) 21 daily. l tablet UNABLE TO 2016-02 Yes Med Name: Met hodi FIND 2-[address] 11:14: thyroid Hospita 21 over the l counter. 3 pills a day Estradiol Estradiol Yes Briana 1 tablet Common [place] [facility] Vital Signs Vital Name Observation Time Observation Value Comments Source Systolic blood 2021-04-07 16:53:00 113 mm[Hg] Univer sity of pressure [facility] Diastolic blood 2021-04-07 16:53:00 63 mm[Hg] Unive rsity [facility] Heart rate 2021-04-07 16:53:00 70 /min [facility] Body temperature 2021-04-07 16:53:00 36.56 [facility] [place] [facility] Respiratory rate 2021-04-07 16:53:00 18 /min [facility] Body height 2021-04-07 16:53:00 157.5 cm [facility] Body weight 2021-04-07 16:53:00 45.36 kg [facility] BMI 2021-04-07 16:53:00 18.29 kg/m2 [facility] Procedures Procedure Date / Time Performing Clinician Source Performed MAMMO BREAST SCREEN 2021-10-07 16:07:00 Surjit Mendieta [facility] TOMOSYNTHESIS BILATERAL POCT URINALYSIS W/O 2021-04-07 00:00:00 Naima Isidro [facility] SPECIFIC GRAVITY [facility] Plan of Care Planned Activity Planned Date Details Comments Source Future Scheduled 2021-10-16 HEPATITIS B VACCINES Met [facility] Test 12:24:25 (1 of 3 - 3-dose series) [code = HEPATITIS B VACCINES (1 of 3 - 3-dose series)] Future Scheduled 2021-10-16 COVID-19 VACCINE (#1) [facility] Test 12:24:25 [code = COVID-19 VACCINE (#1)] Future Scheduled 2021-10-16 Hepatitis C screening [facility] Test 12:24:25 (procedure) [code = 260544961] Future Scheduled 2021-10-16 SHINGLES VACCINES (1 Met [facility] Test 12:24:25 of 2) [code = SHINGLES VACCINES (1 of 2)] Future Scheduled 2021-10-16 65+ [facility] 12:24:25 VACCINE (1 - PCV) [code = 65+ PNEUMOCOCCAL VACCINE (1 - PCV)] Future Scheduled 2021-10-16 INFLUENZA VACCINE Method t Hospital Test 12:24:25 [code = INFLUENZA VACCINE] Future Scheduled 2021-10-16 BREAST CANCER [facility] Test 12:24:25 SCREENING [code = BREAST CANCER SCREENING] Future Scheduled 2021-10-16 COLONOSCOPY SCREENING [facility] Test 12:24:25 [code = COLONOSCOPY SCREENING] Encounters Start End Encounter Admission Attending Care Care Encounter Source Date/Time Date/Time Type Type Clinicians Facility Department ID 2021-10-07 2021-10-07 [facility] Anam, 1.2.840.1 [id number] Methodi 10:44:57 23:59:00 Encounter Surjit [id number] 3.430.2.7 Hospit a .3.497480 l .8 2021-10-07 2021-10-07 Outpatient [facility] [id number] [place] 00:00:00 00:00:[address] 2021-10-07 2021-10-07 Travel 1.2.840.1 [id number] Methodi 00:00:00 00:00:[id number] 3.430.2.7 0.2.7.3.698 spita .3.713019 084.8 l .8 2021-09-18 2021-09-18 Transcribe Anam, 1.2.840.1 [id number] Methodi 00:00:00 00:00:00 Orders Surjit [id number] 3.430.2.7 Hospit a .3.531958 l .8 2021-09-18 2021-09-18 Transcribe Fifi 1.2.840.1 [id number] Methodi 00:00:00 00:00:00 Orders Brigida Campo [id number] 3.430.2.7 Hospit a .3.196422 l .8 2021-04-09 2021-04-09 Telephone Dwaine [facility] 1.2.840.114 [id number] [facility] 00:00:00 00:00:00 Naima BATES 350.1.13.10 i ty of BETH 4.2.7.2.686 Yaquelin DEVI [id number] Me dical NAL 134 [facility] 2021-04-07 2021-04-07 [facility] 1.2.840.114 [id number] Univers 10:30:00 11:16:42 Visit Naima BATES 350.1.13.10 i justen fahad [place] 4.2.7.2.686 [place] PROFESS[place] [id number] Me dical NAL 098 [facility] 2020-10-03 2020-10-03 Outpatient [facility] [id number] [place] 00:00:00 00:00:00 SURJIT 040 Method i 2020-10-03 2020-10-03 Outpatient [facility] [id number] [place] 00:00:00 00:00:00 SURJIT 041 Method i 2019-09-11 2019-09-11 Outpatient RECORDS, [facility] [id number] [place] 00:00:00 00:00:00 SHUKRI 892 Method i 2019-09-11 2019-09-11 Outpatient RECORDS, [facility] [id number] [place] 00:00:00 00:00:00 SHUKRI 893 Method i 2017-05-17 2017-05-17 [facility] [id number] Common 13:15:00 13:15:00 [facility] - I [facility] Results Test Description Test Time Test Comments Results Result Comments Source POCT URINALYSIS W/O SPECIFIC GRAVITY 2021-04-07 16:56:00 Test Item Value Reference Range Interpretation Comme nts POCT PH U (test code = 3254) 5 mg/dl 5-8 POCT U LEUK EST (test code = 3263) Negative Negative - Negative POCT U NIT (test code = 3262) Negative Negative - Negative POCT U PROT (test code = 3259) Negative Negative - Negative POCT U GLU (test code = 3256) Negative Negative - Negative POCT U KETONE (test code = 3258) Neagtive Negative - Negative POCT U BLD (test code = 3257) Negative Negative - Negative [facility] BranchPOCT URINALYSIS W/O SPECIFIC [id number] 16:56:00 Test Item Value Reference Range Interpretation Comments POCT PH U (test code = 3254) 5 mg/dl 5-8 POCT U LEUK EST (test code = Negative Negative - Negative 3263) POCT U NIT (test code = 3262) Negative Negative - Negative POCT U PROT (test code = 3259) Negative Negative - Negative POCT U GLU (test code = 3256) Negative Negative - Negative POCT U KETONE (test code = 3258) Neagtive Negative - Negative POCT U BLD (test code = 3257) Negative Negative - Negative [facility]
[2021-10-23 13:59] LABS: Urine Blood Negative (Negative); Urine Glucose Negative (Negative); Urine Protein Negative (Negative)
--- NOTE | 2021-10-23 14:32 | ER ---
Nurse's Notes [facility] Name: Padmaja Chen Age: 76 yrs Sex: Female : 1945 Arrival Date: 10/23/2021 Time: 13:12 Bed Waiting Private MD: Diagnosis: Groin Mass Presentation: 10/23 13:49 Chief complaint: Patient states: Knot in left groin - pt denies pain. Coronavirus ld1 screen: At this time, the client does not indicate any symptoms associated with coronavirus-19. Ebola Screen: No symptoms or risks identified at this time. Initial Sepsis Screen: Does the patient meet any 2 criteria? No. Patient's initial sepsis screen is negative. Does the patient have a suspected source of infection? No. Patient's initial sepsis screen is negative. Risk Assessment: Do you want to hurt yourself or someone else? Patient reports no desire to harm self or others. Onset of symptoms was October 23, 2021. 13:49 Method Of Arrival: Ambulatory ld1 13:49 Acuity: KATRIN 4 ld1 Triage Assessment: 13:49 General: Appears in no apparent distress. comfortable, uncomfortable, Behavior is calm, ld1 cooperative, appropriate for age. Pain: Denies pain. EENT: No signs and/or symptoms were reported regarding the EENT system. Neuro: Level of Consciousness is awake, alert, obeys commands, Oriented to person, place, time, situation. Cardiovascular: Capillary refill < 3 seconds Patient's skin is warm and dry. Respiratory: Airway is patent Respiratory effort is even, unlabored. GI: Abdomen is flat, non-distended. : No signs and/or symptoms were reported regarding the genitourinary system. Derm: No deficits noted. No signs and/or symptoms reported regarding the dermatologic system. Musculoskeletal: No signs and/or symptoms reported regarding the musculoskeletal system. Historical: - Allergies: 13:49 Gluten Protein; ld1 13:49 Sulfa (Sulfonamide Antibiotics); ld1 - PMHx: 13:49 gluten intolerance; Hypothyroidism; vagal syndrome; ld1 - PSHx: 13:49 None; ld1 - Immunization history:: Adult Immunizations up to date, Client reports receiving the 2nd dose of the Covid vaccine. - Social history:: Smoking status: Patient denies any tobacco usage or history of. Patient/guardian denies using alcohol. Screenin:07 Abuse screen: Denies threats or abuse. Denies injuries from another. Nutritional ld1 screening: No deficits noted. Tuberculosis screening: No symptoms or risk factors identified. Fall Risk None identified. Assessment: 15:06 Reassessment: See triage assessment. ld1 Vital Signs: 13:49 BP 131 / 61; Pulse 73; Resp 18; Temp 97.7(O); Pulse Ox 100% on R/A; Weight 43.09 kg; ld1 Height 5 ft. 2 in. (157.48 cm); Pain 0/10; 15:06 BP 126 / 63; Pulse 71; Resp 18; Pulse Ox 100% on R/A; Pain 0/10; ld1 13:49 Body Mass Index 17.38 (43.09 kg, 157.48 cm) ld1 ED Course: 13:12 Patient arrived in ED. rg4 13:13 Dimitrios Rodrigues PA is PHCP. tammy 13:13 Taj Hedrick DO is Attending Physician. [facility] 13:49 Arm band placed on right wrist. ld1 13:50 Triage completed. ld1 14:31 Faizan Trevino MD is Referral Physician. [facility] 15:07 Patient has correct armband on for positive identification. Placed in gown. Bed in low ld1 position. Call light in reach. Side rails up X2. Pulse ox on. NIBP on. Door closed. Noise minimized. 15:07 No provider procedures requiring assistance completed. Patient did not have IV access ld1 during this emergency room visit. Administered Medications: No medications were administered Medication: 15:07 VIS not applicable for this client. ld1 Outcome: 14:31 Discharge ordered by . oscar 15:07 Discharged to home ambulatory. ld1 15:07 Condition: stable 15:07 Discharge instructions given to patient, Instructed on discharge instructions, follow up and referral plans. Demonstrated understanding of instructions, follow-up care. 15:07 Patient left the ED. ld1 Signatures: Dimitrios Rodrigues PA PA jmm Garcia, Rubi rg4 Quita Pablo, LEXUS RN ld1
--- NOTE | 2021-10-23 14:32 | EDPHYS ---
Physician Documentation [facility] Name: Padmaja Chen Age: 76 yrs Sex: Female : 1945 Arrival Date: 10/23/2021 Time: 13:12 Bed Waiting Private MD: ED Physician Taj Hedrick HPI: 10/23 14:25 This 76 yrs old Female presents to ER via Ambulatory with complaints of Knot On Groin. [facility] 14:25 Onset: The symptoms/episode began/occurred gradually, 3 day(s) ago. This is a [facility] 76-year-old female with history of hypothyroidism the presents emerged part with complaints of right groin swelling. Patient states she initially noticed this about 3 days ago. Denies fever or dysuria. Denies vomiting.. Historical: - Allergies: 13:49 Gluten Protein; ld1 13:49 Sulfa (Sulfonamide Antibiotics); ld1 - PMHx: 13:49 gluten intolerance; Hypothyroidism; vagal syndrome; ld1 - PSHx: 13:49 None; ld1 - Immunization history:: Adult Immunizations up to date, Client reports receiving the 2nd dose of the Covid vaccine. - Social history:: Smoking status: Patient denies any tobacco usage or history of. Patient/guardian denies using alcohol. ROS: 14:25 Constitutional: Negative for fever, chills, and weight loss, Cardiovascular: Negative jm for chest pain, palpitations, and edema, Respiratory: Negative for shortness of breath, cough, wheezing, and pleuritic chest pain. 14:25 Abdomen/GI: Positive for abdominal pain, diarrhea. 14:25 All other systems are negative. Exam: 14:25 Constitutional: This is a well developed, well nourished patient who is awake, alert, jmm and in no acute distress. Head/Face: atraumatic. Eyes: EOMI, no conjunctival erythema appreciated ENT: Moist Mucus Membranes Neck: Trachea midline, Supple Chest/axilla: Normal chest wall appearance and motion. Cardiovascular: Regular rate and rhythm. No edema appreciated Respiratory: Normal respirations, no respiratory distress appreciated 14:25 Abdomen/GI: Inspection: abdomen appears normal, Bowel sounds: normal, Palpation: soft, mild abdominal tenderness, in the right lower quadrant and left lower quadrant. 14:25 : Cystlike mass palpated at the right inguinal region, no surrounding erythema, nontender to palpation. 14:25 Musculoskeletal/extremity: ROM: intact in all extremities. 14:25 Skin: Appearance: Color: normal in color. 14:25 Neuro: Orientation: is normal, Mentation: is normal, Memory: is normal. 14:25 Psych: Behavior/mood is pleasant, cooperative. Vital Signs: 13:49 BP 131 / 61; Pulse 73; Resp 18; Temp 97.7(O); Pulse Ox 100% on R/A; Weight 43.09 kg; ld1 Height 5 ft. 2 in. (157.48 cm); Pain 0/10; 15:06 BP 126 / 63; Pulse 71; Resp 18; Pulse Ox 100% on R/A; Pain 0/10; ld1 13:49 Body Mass Index 17.38 (43.09 kg, 157.48 cm) ld1 MDM: 13:31 Patient medically screened. [facility] 14:30 Data reviewed: vital signs, nurses notes. Counseling: I had a detailed discussion with tammy the patient and/or guardian regarding: the historical points, exam findings, and any diagnostic results supporting the discharge/admit diagnosis, lab results, the need for outpatient follow up, to return to the emergency department if symptoms worsen or persist or if there are any questions or concerns that arise at home. ED course: Due to the patient's lower abdominal pain I did recommend CT imaging. Patient declined imaging stating that this abdominal pain is consistent with her gluten intolerance and states that she had food that would normally upset her stomach earlier. I did discussed the possibilities of appendicitis and colitis. Patient will follow up with her GI closely and otherwise will return to the ER if symptoms do worsen.. 10/23 13:59 Order name: Urine Dipstick-Ancillary; Complete Time: 14:03 EDIL 10/23 13:51 Order name: Urine Dipstick-Ancillary (obtain specimen); Complete Time: 14:00 tammy Administered Medications: No medications were administered Disposition: 16:37 Co-signature as Attending Physician, Taj Hedrick DO I agree with the assessment and ms3 plan of care. Disposition Summary: 10/23/21 14:31 Discharge Ordered Location: Home [facility] Condition: Stable [facility] Diagnosis - Groin Mass [facility] Followup: tammy - With: Faizan Trevino MD - When: 2 - 3 days - Reason: Recheck today's complaints, Continuance of care, Re-evaluation by your physician Discharge Instructions: - Discharge Summary Sheet tammy Forms: - Medication Reconciliation Form tammy - Thank You Letter tammy - Antibiotic Education tammy - Prescription Opioid Use tammy Signatures: Dimitrios Rodrigues PA PA jmm Sims, Marcus, DO DO ms3 Quita Pablo RN RN ld1
[2021-10-23 15:56] VITALS: TEMP 97.7; O2SAT 100
[2021-10-23 15:58] VITALS: BP 126/63
== END 2021-10-23 15:07 | disposition home or self-care (01) ==
LOC: ER 13:10
DX: R22.9 Localized swelling, mass and lump, unspecified (principal); E03.9 Hypothyroidism, unspecified; Z88.2 Allergy status to sulfonamides; Z91.018 Allergy to other foods
CPT/HCPCS: 81003; 99283